=== PATIENT | female | born 1975 | race Caucasian/White ===

== ENCOUNTER 2021-08-12 09:16 | Emergency (ER) | payer OTHER ==
[2021-08-12 09:28] VITALS: BP 133/83; PULSE 17; TEMP 98.9; BMI 32.1
[2021-08-13 23:07] LABS: SARS-CoV-2 NAA Not Detected (Not Detected)
== END 2021-08-12 11:44 | disposition home or self-care (01) ==
LOC: JER 09:16
DX: J06.9 Acute upper respiratory infection, unspecified (principal)
CPT/HCPCS: 93005; 93010; 99283-25; C9803-CS; U0003; U0005